=== PATIENT | female | born 2000 | race American Indian/Alaskan Native ===

== ENCOUNTER 2020-06-20 02:17 | Emergency (ER) | payer SELFPAY ==
[2020-06-20] MEDS ORDERED: MORPHINE 2 MG/1 ML INJ IV ONE (05:34)
[2020-06-20] MEDS ORDERED: SODIUM CHLORIDE 0.9% 1000 ML 1,000 ML IV ONE (05:34)
[2020-06-20] MEDS ORDERED: ONDANSETRON 4 MG/2 ML INJ IV ONE (05:34)
[2020-06-20] MEDS ORDERED: ACETAMINOPHEN 325 MG TAB PO ONE (06:03)
--- NOTE | 2020-06-20 06:06 | Emergency Department Report ---
<MICHAEL WARREN - Last Filed: 06/20/20 07:05> ED Abdominal Pain HPI - General Chief Complaint: Abdominal Pain Stated Complaint: UTI Source: patient, EMS Mode of arrival: Wheelchair Limitations: No Limitations - History of Present Illness Initial Comments: Patient is a nulliparous 19-year-old -[place] female with no past medical history presents to the ED with complaint of acute onset persistent severe diffuse low abdominal pain in the right lower quadrant area that radiates to the right flank and suprapubic area, nausea and vomiting for the last 1 week. Patient also complains of dysuria, urinary frequency and urgency. Patient states that she was initially evaluated at an urgent care clinic and given antibiotics for suspected UTI. Patient states that despite taking the medications and finishing about 24 hours ago the pain has been persistent and constant and got worse in the last 12 hours. Patient also complains of chills, lack of appetite, fever up after 100 F and vaginal discharge. Patient denies vaginal bleeding, dizziness, syncope, chest pain, cough, sore throat, nasal and sinus congestion, diarrhea or change in vision and syncope. MD Complaint: abdominal pain (RLQ abdominal pain), flank pain (right), other (Nausea and vomiting) -: Sudden, week(s) (1) Location: RLQ, suprapubic, R flank Radiation: RLQ, suprapubic, R flank Migration to: no migration Severity scale (0 -10): 10 Quality: cramping, aching, sharp Consistency: constant Improves With: nothing Worsens With: movement Associated Symptoms: denies other symptoms, nausea, vomiting, anorexia. denies: diarrhea, fever, chills, constipation, dysuria, hematemesis, melena, hematuria - Related Data LMP Date: 06/07/20 Previous Rx's Medication Instructions Recorded Last Taken Type Acetaminophen/Codeine [Tylenol 1 tab PO Q8H PRN #12 tab 06/20/20 Unknown Rx /Codeine # 3 tab] Ondansetron [Zofran Odt] 4 mg PO Q8HR #12 tab.rapdis 06/20/20 Unknown Rx metroNIDAZOLE [Flagyl TAB] 500 mg PO Q12HR 7 Days #14 tab 06/20/20 Unknown Rx Allergies Allergy/AdvReac Type Severity Reaction Status Date / Time No Known Allergies Allergy Unverified 06/20/20 02:22 ED Review of Systems Constitutional: chills, fever, malaise Eyes: denies: eye pain, eye discharge, vision change ENT: denies: ear pain, throat pain Respiratory: denies: cough, shortness of breath, wheezing Cardiovascular: denies: chest pain, palpitations Endocrine: no symptoms reported Gastrointestinal: abdominal pain (Right lower quadrant, suprapubic and right flank pain), nausea, vomiting. denies: diarrhea Genitourinary: urgency, dysuria, frequency, discharge Musculoskeletal: denies: back pain, joint swelling, arthralgia Skin: denies: rash, lesions Neurological: denies: headache, weakness, paresthesias Psychiatric: denies: anxiety, depression Hematological/Lymphatic: denies: easy bleeding, easy bruising ED Past Medical Hx - Past Medical History Previous Medical History?: No - Surgical History Past Surgical History?: No - Social History Smoking Status: Never Smoker - Medications Home Medications: Home Medications Medication Instructions Recorded Confirmed Last Taken Type Acetaminophen/Codeine [Tylenol 1 tab PO Q8H PRN #12 tab 06/20/20 Unknown Rx /Codeine # 3 tab] Ondansetron [Zofran Odt] 4 mg PO Q8HR #12 tab.rapdis 06/20/20 Unknown Rx metroNIDAZOLE [Flagyl TAB] 500 mg PO Q12HR 7 Days #14 tab 06/20/20 Unknown Rx ED Physical Exam - General Limitations: No Limitations General appearance: alert, in no apparent distress - Head Head exam: Present: atraumatic, normocephalic, normal inspection - Eye Eye exam: Present: normal appearance, PERRL, EOMI Pupils: Present: normal accommodation - ENT ENT exam: Present: normal exam, normal orophraynx, mucous membranes moist, TM's normal bilaterally, normal external ear exam - Neck Neck exam: Present: normal inspection, full ROM - Respiratory Respiratory exam: Present: normal lung sounds bilaterally. Absent: respiratory distress, wheezes, rales, rhonchi, stridor, chest wall tenderness, accessory muscle use, decreased breath sounds, prolonged expiratory - Cardiovascular Cardiovascular Exam: Present: regular rate, normal rhythm, normal heart sounds. Absent: systolic murmur, diastolic murmur, rubs, gallop - GI/Abdominal GI/Abdominal exam: Present: soft, tenderness (Palpable right lower quadrant tenderness with guarding), guarding, normal bowel sounds. Absent: rebound, hyperactive bowel sounds, hypoactive bowel sounds, organomegaly - Bi-manual exam: Present: other (Pelvic exam deferred, patient preferred self swab) - Extremities Exam Extremities exam: Present: normal inspection, full ROM, normal capillary refill - Back Exam Back exam: Present: normal inspection, full ROM. Absent: tenderness, CVA tenderness (R), CVA tenderness (L), muscle spasm, paraspinal tenderness, vertebral tenderness - Neurological Exam Neurological exam: Present: alert, oriented X3, CN II-XII intact, normal gait, reflexes normal - Psychiatric Psychiatric exam: Present: normal affect, normal mood, anxious - Skin Skin exam: Present: warm, dry, intact, normal color. Absent: rash ED Medical Decision Making - Lab Data Result diagrams: 06/20/20 05:51 06/20/20 05:51 - Radiology Data Radiology results: report reviewed, image reviewed - Medical Decision Making This is a nulliparous 19-year-old -[place] female with no past medical history presents to the ED with complaint of acute onset persistent severe diffuse low abdominal pain in the right lower quadrant area that radiates to the right flank and suprapubic area, nausea and vomiting for the last 1 week. Patient also complains of dysuria, urinary frequency and urgency. Patient states that she was initially evaluated at an urgent care clinic and given antibiotics for suspected UTI. Patient states that despite taking the medications and finishing about 24 hours ago the pain has been persistent and constant and got worse in the last 12 hours. Patient also complains of chills, lack of appetite, fever up after 100 F and vaginal discharge. In the ED, patient is alert and oriented x3 and is not in distress but febrile in triage and anxious. Patient was treated for pain in the ED and also received antiemetics Zofran, normal saline 1 L IV bolus x1. Abdomen pelvis CT scan with contrast was ordered. On reevaluation, patient's pain is well controlled medications. Patient care was transferred to Ms. Marcel Aguilar PA-C at shift change at 0700 hrs. Ms. Aguilar shall review all lab test results and imaging report and appropriately disposition the patient. - Differential Diagnosis Appendicitis; ovarian cyst; pyelonephritis; UTI; kidney stones; colitis ED Disposition Clinical Impression: Acute abdominal pain in right lower quadrant, Nausea and vomiting in adult patient, Fever with chills, Bacterial vaginosis Disposition: DC-01 TO HOME OR SELFCARE Is pt being admited?: No Does the pt Need Aspirin: No Condition: Stable Instructions: Viral Gastroenteritis, Adult, Bacterial Vaginosis, Bacterial Vaginosis (ED), Abdominal Pain (ED) Additional Instructions: Seek immediate emergency treatment if you develop new or worsening symptoms Prescriptions: metroNIDAZOLE [Flagyl TAB] 500 mg PO Q12HR 7 Days #14 tab Acetaminophen/Codeine [Tylenol /Codeine # 3 tab] 1 tab PO Q8H PRN #12 tab PRN Reason: Pain , Severe (7-10) Ondansetron [Zofran Odt] 4 mg PO Q8HR #12 tab.rapdis Referrals: [facility] [Provider Group] - 06/22/20 Forms: STI Treatment and Prevention, Work/School Release Form(ED) <MARCEL AGUILAR - Last Filed: 06/20/20 16:52> ED Review of Systems ROS: Stated complaint: UTI Other details as noted in HPI ED Physical Exam - GI/Abdominal GI/Abdominal exam: Present: tenderness ED Course Vital Signs 06/20/20 06/20/20 02:23 08:02 Temperature 100.1 F H 98.1 F Pulse Rate 80 68 Respiratory 16 18 Rate Blood Pressure 96/61 110/68 [Right] O2 Sat by Pulse 99 100 Oximetry ED Medical Decision Making - Lab Data Result diagrams: 06/20/20 05:51 06/20/20 05:51 Lab Results 06/20/20 06/20/20 06/20/20 Range/Units 05:51 05:51 05:51 WBC 15.2 H (4.5-11.0) K/mm3 RBC 4.21 (3.65-5.03) M/mm3 Hgb 12.4 (10.1-14.3) gm/dl Hct 37.3 (30.3-42.9) % MCV 89 (79-97) fl MCH 30 (28-32) pg MCHC 33 (30-34) % RDW 13.4 (13.2-15.2) % Plt Count 325 (140-440) K/mm3 Lymph % (Auto) 11.3 L (13.4-35.0) % Rich % (Auto) 4.3 (0.0-7.3) % Eos % (Auto) 0.5 (0.0-4.3) % Baso % (Auto) 0.3 (0.0-1.8) % Lymph # (Auto) 1.7 (1.2-5.4) K/mm3 Rich # (Auto) 0.7 (0.0-0.8) K/mm3 Eos # (Auto) 0.1 (0.0-0.4) K/mm3 Baso # (Auto) 0.1 (0.0-0.1) K/mm3 Seg Neutrophils % 83.6 H (40.0-70.0) % Seg Neutrophils # 12.7 H (1.8-7.7) K/mm3 Sodium 138 (137-145) mmol/L Potassium 3.8 (3.6-5.0) mmol/L Chloride 103.0 (98-107) mmol/L Carbon Dioxide 24 (22-30) mmol/L Anion Gap 15 mmol/L BUN 7 (7-17) mg/dL Creatinine 0.7 (0.6-1.2) mg/dL Estimated GFR > 60 ml/min BUN/Creatinine Ratio 10 % Glucose 83 (65-100) mg/dL Calcium 9.0 (8.4-10.2) mg/dL Total Bilirubin 0.20 (0.1-1.2) mg/dL AST 10 (5-40) units/L ALT 8 (7-56) units/L Alkaline Phosphatase 58 (35-129) units/L Total Protein 7.4 (6.3-8.2) g/dL Albumin 3.8 L (3.9-5) g/dL Albumin/Globulin Ratio 1.1 % Lipase 13 (13-60) units/L HCG, Qual Negative (Negative) Urine Color (Yellow) Urine Turbidity (Clear) Urine pH (5.0-7.0) Ur Specific [place] (1.003-1.030) Urine Protein (Negative) mg/dL Urine Glucose (UA) (Negative) mg/dL Urine Ketones (Negative) mg/dL Urine Blood (Negative) Urine Nitrite (Negative) Urine Bilirubin (Negative) Urine Urobilinogen (<2.0) mg/dL Ur Leukocyte Esterase (Negative) Urine WBC (Auto) (0.0-6.0) /HPF Urine RBC (Auto) (0.0-6.0) /HPF U Epithel Cells (Auto) (0-13.0) /HPF Urine Mucus /HPF 06/20/20 Range/Units 06:14 WBC (4.5-11.0) K/mm3 RBC (3.65-5.03) M/mm3 Hgb (10.1-14.3) gm/dl Hct (30.3-42.9) % MCV (79-97) fl MCH (28-32) pg MCHC (30-34) % RDW (13.2-15.2) % Plt Count (140-440) K/mm3 Lymph % (Auto) (13.4-35.0) % Rich % (Auto) (0.0-7.3) % Eos % (Auto) (0.0-4.3) % Baso % (Auto) (0.0-1.8) % Lymph # (Auto) (1.2-5.4) K/mm3 Rich # (Auto) (0.0-0.8) K/mm3 Eos # (Auto) (0.0-0.4) K/mm3 Baso # (Auto) (0.0-0.1) K/mm3 Seg Neutrophils % (40.0-70.0) % Seg Neutrophils # (1.8-7.7) K/mm3 Sodium (137-145) mmol/L Potassium (3.6-5.0) mmol/L Chloride (98-107) mmol/L Carbon Dioxide (22-30) mmol/L Anion Gap mmol/L BUN (7-17) mg/dL Creatinine (0.6-1.2) mg/dL Estimated GFR ml/min BUN/Creatinine Ratio % Glucose (65-100) mg/dL Calcium (8.4-10.2) mg/dL Total Bilirubin (0.1-1.2) mg/dL AST (5-40) units/L ALT (7-56) units/L Alkaline Phosphatase (35-129) units/L Total Protein (6.3-8.2) g/dL Albumin (3.9-5) g/dL Albumin/Globulin Ratio % Lipase (13-60) units/L HCG, Qual (Negative) Urine Color Yellow (Yellow) Urine Turbidity Clear (Clear) Urine pH 7.0 (5.0-7.0) Ur Specific [place] 1.017 (1.003-1.030) Urine Protein <15 mg/dl (Negative) mg/dL Urine Glucose (UA) Neg (Negative) mg/dL Urine Ketones Neg (Negative) mg/dL Urine Blood Neg (Negative) Urine Nitrite Neg (Negative) Urine Bilirubin Neg (Negative) Urine Urobilinogen < 2.0 (<2.0) mg/dL Ur Leukocyte Esterase Tr (Negative) Urine WBC (Auto) 1.0 (0.0-6.0) /HPF Urine RBC (Auto) 1.0 (0.0-6.0) /HPF U Epithel Cells (Auto) 5.0 (0-13.0) /HPF Urine Mucus Few /HPF - Radiology Data Radiology results: report reviewed CT abdomen pelvis w con INDICATION / CLINICAL INFORMATION: Pt complains of R.L.Q. abd pain with nausea and vomiting. TECHNIQUE: Axial CT imaging of abdomen and pelvis was obtained with IV contrast. Coronal and sagittal reformatted imaging obtained and reviewed. All CT scans at this location are performed using CT dose reduction for ALARA by means of automated exposure control. COMPARISON: None available. FINDINGS: CT abdomen with contrast demonstrates normal appearance of the liver, spleen, pancreas, kidneys, and adrenal glands. No obvious gallbladder pathology or biliary dilatation. Incidental note is made of extrarenal pelvis for both kidneys. No hydronephrosis or renal mass. CT pelvis with contrast demonstrates normal appearance of the appendix. There are multiple fluid- filled loops of slightly dilated small bowel throughout the pelvis in a nonobstructive type pattern- the appearance is most suggestive for enteritis. The remainder of the GI tract is unremarkable. No free fluid. No pelvic mass noted. Both ovaries appear grossly unremarkable. Visualized lung bases are clear. No acute significant osseous abnormality. IMPRESSION: 1. Multiple slightly dilated fluid-filled loops of small bowel are present throu ghout the pelvis without transition point. The appearance does not appear to be due to mechanical bowel obstruction and is more than likely related to severe case of enteritis. Please correlate with clinical symptoms. 2. A normal appendix is visualized. - Medical Decision Making CT abdomen shows severe enteritis without obstruction and is negative for appendicitis or other acute abnormality. On reexamination, patient does have tenderness to the lower abdomen. Wet prep is negative for trichomonas and positive for BV. Patient continues to decline pelvic exam despite recommendation to rule out PID. Patient states on self-examination she pressed on her cervix and denies having any tenderness. Fever has resolved with oral Tylenol. No tachycardia is observed. Discussed patient in detail with Dr. Price-recommends outpatient treatment with Tylenol and antiemetics and follow-up with primary care in 2 days or with the ED. Her pain is currently controlled. She is well-appearing and stable for discharge home. Discussed in great detail signs and symptoms that should prompt immediate return to the emergency department with patient who verbalizes understanding. Metronidazole given for BV Critical care attestation.: If time is entered above; I have spent that time in minutes in the direct care of this critically ill patient, excluding procedure time. ED Disposition Is pt being admited?: No
[2020-06-20 06:09] LABS: Basophils # (Auto) 0.1 K/mm3 (0.0-0.1); Basophils % (Auto) 0.3 % (0.0-1.8); Eosinophils # (Auto) 0.1 K/mm3 (0.0-0.4); Eosinophils % (Auto) 0.5 % (0.0-4.3); Hematocrit 37.3 % (30.3-42.9); Hemoglobin 12.4 gm/dl (10.1-14.3); Lymphocytes # (Auto) 1.7 K/mm3 (1.2-5.4); Lymphocytes % (Auto) 11.3 % (13.4-35.0); Mean Corpuscular HGB Conc 33 % (30-34); Mean Corpuscular Volume 89 fl (79-97); Monocytes # (Auto) 0.7 K/mm3 (0.0-0.8); Monocytes % (Auto) 4.3 % (0.0-7.3); Platelet Count 325 K/mm3 (140-440); Red Blood Count 4.21 M/mm3 (3.65-5.03); Red Cell Distribution Width 13.4 % (13.2-15.2)
[2020-06-20 06:33] LABS: Alanine Aminotransferase 8 units/L (7-56); Albumin 3.8 g/dL (3.9-5); Blood Urea Nitrogen 7 mg/dL (7-17); Hemolysis Index 6
[2020-06-20 06:34] LABS: BUN/Creatinine Ratio 10
[2020-06-20 07:02] LABS: Bilirubin,Urine NEG (Negative); Blood,Urine NEG (Negative); Color,Urine Yellow (Yellow); Mucus,Urine FEW /HPF; Protein,Urine <15 mg/dL mg/dL (Negative); Urobilinogen,Urine < 2.0 mg/dL (<2.0)
--- NOTE | 2020-06-20 07:07 | Cat Scan Report ---
CT abdomen pelvis w con INDICATION / CLINICAL INFORMATION: Pt complains of R.L.Q. abd pain with nausea and vomiting. TECHNIQUE: Axial CT imaging of abdomen and pelvis was obtained with IV contrast. Coronal and sagittal reformatte d imaging obtained and reviewed. All CT scans at this location are performed using CT dose reduction for ALARA by means of automated exposure control. COMPARISON: None available. FINDINGS: CT abdomen with contrast demonstrates normal appearance of the liver, spleen, pancreas, kidneys, and adrenal glands. No obvious gallbladder pathology or biliary dilatation. Incidental note is made of ex trarenal pelvis for both kidneys. No hydronephrosis or renal mass. CT pelvis with contrast demonstrates normal appearance of the appendix. There are multiple fluid-fill ed loops of slightly dilated small bowel throughout the pelvis in a nonobstructive type pattern- the appearance is most suggestive for enteritis. The remainder of the GI tract is unremarkable. No free f luid. No pelvic mass noted. Both ovaries appear grossly unremarkable. Visualized lung bases are clear. No acute significant osseous abnormality. IMPRESSION: 1. Multiple slightly dilated fluid-filled loops of small bowel are present throughout the pelvis with out transition point. The appearance does not appear to be due to mechanical bowel obstruction and is more than likely related to severe case of enteritis. Please correlate with clinical symptoms. 2. A normal appendix is visualized. Signer Name: Joi Castillo MD Signed: 06/20/2020 7:03 AM Workstation Name: [id number]
[2020-06-20 08:04] VITALS: BP 110/68
[2020-06-20] MEDS ORDERED: MORPHINE 4 MG/1 ML INJ IV ONE (08:29)
[2020-06-20] MEDS ORDERED: dexAMETHasone 20 MG/5 ML VIAL IV ONE (09:00)
[2020-06-20] MEDS ORDERED: KETOROLAC 30 MG/1 ML INJ IV ONE (09:00)
== END 2020-06-20 09:33 | disposition home or self-care (01) ==
LOC: ED 02:17
DX: N76.0 Acute vaginitis (principal); B96.89 Other specified bacterial agents as the cause of diseases classified elsewhere; R11.2 Nausea with vomiting, unspecified; R10.31 Right lower quadrant pain; R50.9 Fever, unspecified; Z79.899 Other long term (current) drug therapy
CPT/HCPCS: 36415; 74177; 80053; 81001; 82140; 83690; 84703; 85025; 87210; 87591; 96361; 96374; 96375; 96376; 99285; J1100; J1885; J2270; J2405; J7030; Q9967